=== PATIENT | male | born 1960 | race Caucasian/White ===

== ENCOUNTER 2017-06-06 15:24 | Emergency (ER) | payer OTHER ==
[~2017-06-06] VITALS: Ht 172.7 cm; Wt 72.2 kg
[~2017-06-06 15:24] MED LIST: ADVIL200 MG PO; ASCORBIC ACID500 M3 PO; B COMPLETE1 EACH PO; BLOOD PRESSURE; CYCLOBENZAPRINE10 MG PO; DAILY VITE1 EAC1 PO; DECADRON2 MG PO; GABAPENTIN300 MG PO; LIDODERM 5% P1 PATCH TD; LISINOPRIL40 MG PO; LOVENOX40 MG/0.4 SC; MELOXICAM15 MG PO; OXAYDO5 MG PO; OXYCODONE HCL5 MG PO; PRILOSEC OTC20 MG PO; VITAMIN B-6100 MG PO; VITAMIN D31000 UNIT PO
[2017-06-06 15:59] LABS: EOSINOPHIL (%) 1.6 % (0-5); EOSINOPHIL COUNT 0.1 K/uL (0-0.3); IMMATURE GRANULOCYTE (%) 0.4 % (0.0-0.7); INSTRUMENT ABS NEUTROPHIL CT 3.4 K/uL; LYMPHOCYTE COUNT 3.2 K/uL (1.0-2.8); MCH 34.5 PG (29.0-34.0); MCHC 34.4 G/DL (30.0-36.0); MCV 100.3 FL (86-99); MONOCYTE (%) 8.7 % (3-12); MONOCYTE COUNT 0.6 K/uL (0-0.8); NEUTROPHIL (%) 45.7 % (45-76); NEUTROPHIL COUNT 3.4 K/uL (1.8-6.4); RBC DIS.WIDTH-CV 14.1 % (11.8-14.6); RBC DIS.WIDTH-SD 51.2 % (39-53); RED BLOOD COUNT 3.19 M/uL (4.00-5.50); WHITE BLOOD COUNT 7.4 K/uL (4.1-10.2)
[2017-06-06 16:09] LABS: CHLORIDE 107 mEq/L (99-109); POTASSIUM 3.9 mEq/L (3.7-5.4)
[2017-06-06 16:10] LABS: SODIUM 138 mEq/L (136-147)
[2017-06-06 16:12] LABS: GLUCOSE 166 mg/dL (70-99)
[2017-06-06 16:13] LABS: ANION GAP 11 MEQ/L (2-14)
[2017-06-06 16:14] LABS: TOTAL BILIRUBIN 0.4 mg/dL (0.0-1.0)
[2017-06-06 16:15] LABS: ALKALINE PHOSPHATASE 127 IU/L (3-129); SERUM ETHYL ALCOHOL 160 mg/dL
[2017-06-06 16:16] LABS: GFR ESTIMATE (CALCULATED) > 59 mL/min/
[2017-06-06 16:17] LABS: UREA NITROGEN (BUN) 16 mg/dL (9-23)
[2017-06-06 16:57] LABS: ADD MEDTOX COMMENT Y; AMPHETAMINE NEGATIVE (500 ng/mL); BARBITURATES NEGATIVE (200 ng/mL); BENZODIAZEPINES NEGATIVE (150 ng/mL); COCAINE NEGATIVE (150 ng/mL); INTERNAL CONTROLS VALID? YES; METHADONE NEGATIVE (200 ng/mL); METHAMPHETAMINE NEGATIVE (500 ng/mL); OPIATES (MORPHINE) PRESUMPTIVE POSITIVE (100 ng/mL); OXYCODONE NEGATIVE (100 ng/mL); PHENCYCLIDINE NEGATIVE (25 ng/mL); PROPOXYPHENE NEGATIVE (300 ng/mL); THC CANNABINOIDS NEGATIVE (50 ng/mL); TRICYCLIC ANTIDEPRESSANTS NEGATIVE (300 ng/mL)
[2017-06-06 17:12] LABS: IMM.PLATELET FRACTION 6.3 (1-7); MEAN PLAT.VOLUME 11.2 uM^3 (9.0-12.4); PLAT.SUFFICIENCY DECREASED; PLATELET COUNT 49 K/uL (156-360)
[2017-06-06 18:34] VITALS: BP 120/78
== END 2017-06-06 18:36 | disposition home or self-care (01) ==
LOC: EME 15:24
PROVIDERS: Emergency Medicine
DX: T40.1X1A Poisoning by heroin, accidental (unintentional), initial encounter (principal); F17.200 Nicotine dependence, unspecified, uncomplicated; Z86.19 Personal history of other infectious and parasitic diseases
CPT/HCPCS: 80053; 84999; 85025; 93005; 99281; 99285; G0480; J2310; J7030

== ENCOUNTER 2017-10-22 09:25 | Day surgery (SDC) | payer OTHER ==
[~2017-10-22] VITALS: Ht 175.3 cm; Wt 68.5 kg
[~2017-10-22 09:25] MED LIST changes: +FLEXERIL10 MG PO; +OXYCODONE HCL10 MG PO
== END 2017-10-22 11:28 | disposition home or self-care (01) ==
LOC: PAIN 09:25 → SDC 10:00 → PAIN 10:00
DX: M47.816 Spondylosis without myelopathy or radiculopathy, lumbar region (principal); M54.5 Low back pain; G89.29 Other chronic pain; M43.16 Spondylolisthesis, lumbar region; M25.552 Pain in left hip; M51.36 Other intervertebral disc degeneration, lumbar region; I10 Essential (primary) hypertension; K21.9 Gastro-esophageal reflux disease without esophagitis; B18.2 Chronic viral hepatitis C; F17.200 Nicotine dependence, unspecified, uncomplicated; Z98.1 Arthrodesis status; Z96.642 Presence of left artificial hip joint
CPT/HCPCS: J1030; J2250; J3010; S0020

== ENCOUNTER 2017-12-15 08:04 | Day surgery (SDC) | payer OTHER ==
[~2017-12-15] VITALS: Ht 175.3 cm; Wt 68.5 kg
== END 2017-12-15 09:25 | disposition home or self-care (01) ==
LOC: PAIN 08:04 → SDC 08:30 → PAIN 08:30
DX: M47.816 Spondylosis without myelopathy or radiculopathy, lumbar region (principal); Z98.1 Arthrodesis status; Z96.642 Presence of left artificial hip joint; F17.200 Nicotine dependence, unspecified, uncomplicated; B18.2 Chronic viral hepatitis C; K74.69 Other cirrhosis of liver; I10 Essential (primary) hypertension
CPT/HCPCS: J1030; J1885; J2250; J3010; S0020